=== PATIENT | male | born 1950 | race Hispanic/Latino ===

== ENCOUNTER 2019-08-22 08:49 | Outpatient (CLI) | payer MEDICARE, SELFPAY ==
[2019-08-22 10:46] LABS: Alanine Aminotransferase 37 U/L (16-63); Cholesterol 138 mg/dL (0-200); HDL Direct 42 mg/dL (40-60); LDL Cholesterol Calculated 76 mg/dL (<130); Triglycerides 100 mg/dL (0-150)
== END 2019-08-22 08:50 | disposition home or self-care (01) ==
DX: E78.5 Hyperlipidemia, unspecified (principal); Z79.899 Other long term (current) drug therapy
CPT/HCPCS: 36415; 80061; 84460

== ENCOUNTER 2020-10-20 19:37 | Emergency (ER) | payer MEDICARE, SELFPAY ==
--- NOTE | ~2020-10-20 | XR_ITS ---
XR finger 4th LT min 2V 10/20/2020 20:43 Indication: Left fourth finger pain Procedure: 4 views left fourth finger Comparison: No prior studies for comparison. Findings: There is a nondisplaced tuft fracture fourth distal phalanx with overlying soft tissue swel ling. No other fractures. No foreign bodies. Impression: 1: Nondisplaced tuft fracture left fourth distal phalanx. Reviewed, dictated and finalized at location A. Impression: 1: Nondisplaced tuft fracture left fourth distal phalanx.
[2020-10-20 19:42] VITALS: BP 124/56; PULSE 59; RESP 14; TEMP 36.6; O2SAT 96
--- NOTE | 2020-10-20 19:57 | ED.WOUNDLAC ---
HPI - Wound/Laceration General Chief Complaint: Wound/Laceration Stated Complaint: cut finger on left hand Time Seen by Provider: 10/20/20 19:57 Source: patient Mode of arrival: ambulatory Limitations: no limitations History of Present Illness HPI narrative: 70-year-old man comes in today complaining of pain, swelling and laceration on his left ring finger tip that started about noon today. Patient states he was lifting a generator and it smashed his finger. He denies any numbness in his normal range of motion. He does not recall his last tetanus shot. Onset (ago): hour(s) (8) Extremity Location: Left: hand ( Ring finger) Place: outdoors Patient tetanus UTD: No Context: accidental Associated symptoms: pain Related Data Home Medications Medication Instructions Recorded Confirmed aspirin [Adult Aspirin] 81 mg PO DAILY 10/20/20 10/20/20 atorvastatin 80 mg PO DAILY 10/20/20 10/20/20 Allergies Allergy/AdvReac Type Severity Reaction Status Date / Time Penicillins Allergy Hives Verified 10/20/20 20:07 Review of Systems Review of Systems: All systems reviewed & are unremarkable except as noted in HPI and below Constitutional: Constitutional: Denies chills and Denies fever(s) Gastrointestinal: Gastrointestinal: Denies nausea and Denies vomiting Musculoskeletal: Musculoskeletal: Denies arthralgias and Denies joint swelling Integumentary/Breasts: Skin/Breast: Denies pruritus, Denies erythema and Denies rash Neurologic: Denies dizziness and Denies syncope Hematologic/Lymphatic: Hematologic/Lymphatic: Denies easy bleeding and Denies easy bruising Allergic/Immunologic: Allergic/Immunologic: Denies lip swelling and Denies throat swelling PMFSH Past Medical History Medical History (Updated 10/20/20 @ 20:55 by Silas Muniz MD) Coronary artery disease Dyslipidemia Surgical History Surgical History H/O Achilles tendon repair H/O Spinal surgery x2 S/P CABG (coronary artery bypass graft) Family History Family History (Updated 02/22/14 @ 07:13 by DOCTOR UNKNOWN) Mother Carcinoma of colon Social History Social History Smoking status: Never smoker Alcohol intake: never Exam Const: General: healthy appearing, no acute distress and alert Orientation/consciousness: patient oriented x3 Limitations: no limitations Eyes: Conjunctivae: conjunctivae normal Pupils: Equal, round and reactive pupils present EOM: EOMs intact bilaterally Skin: General skin exam: normal color, no jaundice and no pallor Rashes: no rashes Other: 1 cm irregular laceration on the radial aspect of the left ring finger. Subungual hematoma is present. Neuro: General: patient oriented x3, moves all extremities, no focal motor deficits and CN's II-XI intact bilaterally Speech: normal speech Gait exam (Neuro): Normal gait present Extrem: General: normal to inspection and no clubbing, cyanosis or edema Psych: Appearance: grossly normal and well kempt Mental Status: mental status grossly normal Affect: normal affect Attitude: cooperative Course Vital Signs Vital signs: Vital Signs Temperature 36.6 C 10/20/20 19:42 Pulse Rate 59 L 10/20/20 19:42 Respiratory Rate 14 10/20/20 19:42 Blood Pressure 124/56 L 10/20/20 19:42 Pulse Oximetry 96 10/20/20 19:42 Temperature 36.6 C 10/20/20 19:42 Pulse Rate 59 L 10/20/20 19:42 Respiratory Rate 14 10/20/20 19:42 Blood Pressure 124/56 L 10/20/20 19:42 Pulse Oximetry 96 10/20/20 19:42 Procedures Laceration Laceration 1: Date: 10/20/20 Time: 20:13 Site: hand Side (If applicable): left Size (cm): 1 Description: irregular Depth: simple, single layer Local Anesthetic: lidocaine 1% Amount of anesthesia used (mL): 1.5 ====== Skin Level ====== Skin layer closed wit
[2020-10-20] MEDS: TETANUS,DIPHTHERIA,AC PERTUSSIS ADULT 0.5 ML (ADACEL) IM (20:04)
[2020-10-20] MEDS: LIDOCAINE HCL 1% LOCAL INJ 20 ML VIAL (20:05)
--- NOTE | 2020-10-20 20:54 | PC.NURSE ---
3 sutures placed to left 4th finger by erp
[2020-10-20 21:09] VITALS: PULSE 60; RESP 15; O2SAT 100
== END 2020-10-20 21:09 | disposition home or self-care (01) ==
PROVIDERS: Emergency Provider Emergency Medicine; PCP Family Medicine
DX: S62.605A Fracture of unspecified phalanx of left ring finger, initial encounter for closed fracture (principal); X58.XXXA Exposure to other specified factors, initial encounter
CPT/HCPCS: 12001; 73140; 90471; 90715; 99283

== ENCOUNTER 2020-10-21 07:44 | Outpatient (CLI) | payer MEDICARE, SELFPAY ==
[2020-10-21 08:35] LABS: Cholesterol 162 mg/dL (0-200); HDL Direct 42 mg/dL (40-60); LDL Cholesterol Calculated 101 mg/dL (<130); Triglycerides 96 mg/dL (0-150)
== END 2020-10-21 07:45 | disposition home or self-care (01) ==
LOC: CHSLAB 07:48
PROVIDERS: PCP Nurse Practitioner; Visit Provider Internal Medicine Cardiovascular Disease
DX: I25.10 Atherosclerotic heart disease of native coronary artery without angina pectoris (principal); E78.2 Mixed hyperlipidemia; Z95.1 Presence of aortocoronary bypass graft
CPT/HCPCS: 36415; 80061

== ENCOUNTER 2021-09-03 12:26 | Outpatient (CLI) | payer MEDICARE, SELFPAY | END 2021-09-03 12:27 | disposition home or self-care (01) | LOC: CHSAUDIO 12:30 | PROVIDERS: PCP Family Medicine; Visit Provider Otolaryngology | DX: H91.90 Unspecified hearing loss, unspecified ear (principal) | CPT/HCPCS: 92557; 92567 ==

== ENCOUNTER 2022-04-04 08:15 | Outpatient (CLI) | payer MEDICARE, SELFPAY ==
--- NOTE | ~2022-04-04 | MR_ITS ---
EXAMINATION: MR knee RT wo con DATE: 04/04/2022 09:18 INDICATION: Primary osteoarthritis TECHNIQUE: Magnetic resonance imaging (MRI) of the right knee was performed without intravenous contr ast. Sequences included axial PD-weighted FS FSE, coronal PD-weighted FSE and PD-weighted FS FSE, sag ittal PD-weighted FSE, and sagittal T2-weighted FS FSE. COMPARISON: 10/15/2016. FINDINGS: Medial compartment: Minimal apical blunting of the meniscal body. Moderate diffuse thinning of cartilage. Mild osteophyto sis. Lateral compartment: Considerable degenerative signal change and fraying of the posterior horn and body, lateral meniscus, with a complex predominantly vertically oriented tear at the junction of the posterior horn and body , and lateral meniscal extrusion. Full-thickness cartilage loss. Subcortical edema and sclerosis. Mod erate osteophytosis. Patellofemoral compartment: Moderate diffuse thinning of cartilage. Full-thickness cartilage loss along the lateral facet. Mild o steophytosis. Intact retinacula. Ligaments and tendons: Diminutive appearing ACL. The PCL, LCL, and MCL are intact. Remaining flexor and extensor tendons are intact. Minimal abnormal fluid deep to the tendons of the pes anserine. Patellar tendon enthesopathy . Fluid: Moderate volume joint fluid. Osseous/other: No suspicious focal or diffuse marrow signal IMPRESSION: 1. Complex tear of the lateral meniscus at the junction of the posterior horn and body with lateral m eniscal extrusion. 2. Thin, diminutive appearing ACL, likely chronic tear, correlate for findings of anterior instabilit y. 3. Tricompartmental arthritic changes, severe in the lateral compartment. 4. Moderate joint effusion. 5. Pes anserine bursitis. 6. Tiny apical tear of the medial meniscal body. Reviewed, dictated and finalized at location K. IMPRESSION: 1. Complex tear of the lateral meniscus at the junction of the posterior horn a nd body with lateral meniscal extrusion. 2. Thin, diminutive appearing ACL, likely chronic tear, correlate for findings of anterior instability. 3. Tricompartmental arthritic changes, severe in the lateral compartment. 4. Moderate joint effusion. 5. Pes anserine bursitis. 6. Tiny apical tear of the medial meniscal body.
== END 2022-04-04 08:16 | disposition home or self-care (01) ==
PROVIDERS: PCP Family Medicine
DX: M17.11 Unilateral primary osteoarthritis, right knee (principal)
CPT/HCPCS: 73721

== ENCOUNTER 2022-05-08 10:04 | Outpatient (CLI) | payer MEDICARE, SELFPAY ==
[2022-05-08 11:13] LABS: Alanine Aminotransferase 41 U/L (16-63); Cholesterol 130 mg/dL (0-200); HDL Direct 45 mg/dL (40-60); LDL Cholesterol Calculated 74 mg/dL (<130); Prostate Specific Antigen 0.9 ng/mL (< OR = 4.0); Triglycerides 54 mg/dL (0-150)
== END 2022-05-08 10:05 | disposition home or self-care (01) ==
LOC: CHSLAB 10:09
PROVIDERS: PCP Family Medicine; Visit Provider Specialist
DX: E78.2 Mixed hyperlipidemia (principal); I25.10 Atherosclerotic heart disease of native coronary artery without angina pectoris; Z12.5 Encounter for screening for malignant neoplasm of prostate
CPT/HCPCS: 36415; 80061; 84153; 84460; G0103

== ENCOUNTER 2022-06-08 14:46 | Outpatient (RCR) | payer MEDICARE, SELFPAY ==
--- NOTE | 2022-06-08 12:36 | PTOPEVAL1 ---
Assessment and note entered by Eladio Bingham Evaluation Information Assessment Status Evaluation Diagnosis pre-op R TKA Onset 06/01/22 Subjective Information Pt. reports that he will be undergoing right TKA on 07/09/22. He reports that he has had progressive knee pain for years. He enjoys pickle ball and tennis and wants to return to playing them comfortably. He reports that he is very active but has recently been unable to be as active due to the pain. He reports that his goal is to develop and exercise program to improve knee mobility and strength. Reported Pain Level Pain Score 3: Self Report Assessment PT Clinical Summary Pt. enters the clinic for pre operative instruction regarding R TKA. He demonstrates independence with a HEP at this time. He is encouraged to initiate exercise immediately till surgical date and following surgery. He will be discharged from our care at this time. Plan of Care Treatment Frequency and D/C from PT to an independent HEP. Duration These treatments will address the objective and functional deficits as defined above. The patient will be advanced safely and appropriately in order for the patient to progress towards his/her prior level of function. Additional exercises will be introduced and as well as a comprehensive home exercise program upon discharge, if needed, ?to ensure carryover of functional gains achieved in the clinic. This treatment plan has been reviewed and agreement upon by the patient.
== END 2022-06-08 16:04 | disposition home or self-care (01) ==
LOC: CHSPT 14:46
PROVIDERS: PCP Family Medicine
DX: M25.561 Pain in right knee (principal); M17.11 Unilateral primary osteoarthritis, right knee
CPT/HCPCS: 97110; 97161; 97530

== ENCOUNTER 2022-07-14 11:20 | Outpatient (RCR) | payer MEDICARE, SELFPAY ==
--- NOTE | 2022-07-14 10:54 | PTOPEVAL1 ---
Assessment and note entered by Eladio Bingham Evaluation Information Assessment Status Evaluation Diagnosis s/p right TKA Onset 07/09/22 Subjective Information Pt. reports that he underwent right TKA on 07/09/22 . He reports that he has been using a recumbent bike but has not been doing his HEP. He reports that he is having intense pain. He reports that he has been putting a pillow under the knee at night. He states that he was active with tennis and pickle ball prior to surgery. He states that he notices a lot of swelling in the knee. He states that his goal is to improve the knee moblity and return to walking normal. Reported Pain Level Pain Score 7: Self Report Assessment PT Clinical Summary Pt. is a 72 year old male who enters the clinic post right partial TKA. He presents with notable edema, impaired gait, impaired l.e. strength, impaired knee mobility, and pain. Continued treatment is indicated in order to improve these areas to allow the pt. to achieve his goal of being able to walk normally without an AD. Plan of Care Interventions Electrical Stimulation,Gait Training,Hot Pack/Cold Pack,Manual Therapy,Neuro Re-education,Patient/ Caregiver Educati,Therapeutic Activities, Therapeutic Exercise Other Interventions vasopneumatic compression PT Services Indicated Yes Treatment Frequency and 2x/week x 10 visits Duration These treatments will address the objective and functional deficits as defined above. The patient will be advanced safely and appropriately in order for the patient to progress towards his/her prior level of function. Additional exercises will be introduced and as well as a comprehensive home exercise program upon discharge, if needed, ?to ensure carryover of functional gains achieved in the clinic. This treatment plan has been reviewed and agreement upon by the patient.
== END 2022-08-11 15:16 | disposition home or self-care (01) ==
LOC: CHSPT 11:20
PROVIDERS: PCP Family Medicine
DX: Z47.1 Aftercare following joint replacement surgery (principal); Z96.651 Presence of right artificial knee joint
CPT/HCPCS: 97016; 97110; 97161; 97530

== ENCOUNTER 2023-01-12 07:51 | Outpatient (RCR) | payer MEDICARE, SELFPAY ==
--- NOTE | 2023-01-12 07:55 | PTOPEVAL1 ---
Assessment and note entered by Eladio Bingham Evaluation Information Assessment Status Evaluation Diagnosis knee pain, right hamstring strain Onset 06/28/22 Subjective Information Pt. reports he underwent right partial knee replacement in Jun. He states that he was doing well, but has recently developed pain in the described area of the lateral HS. He states that he is having increasing trouble bending the knee. He states that he exercises on his total gym daily to try to improve his ROM. He states that the ache is constant and will radiate into the calf. He states that he has numbness on the outside of the right knee. He does notice most pain with trying to bend the right knee. He still attempts to play tennis and pickleball. He reports that his goal is to be able to decrease his knee pain to participate in normal recreational activities. Reported Pain Level Pain Score 4: Self Report Assessment PT Clinical Summary Pt. is a 72 year old male who enters the clinic with right knee pain. He presents with indcation of HS strain on the right. He currently presents with pain, limited knee mobility, impaired gait and functional decline. Continued skilled PT is indicated in order to improve these areas to allow the pt. improved comfort with all IADL's. Plan of Care Interventions Electrical Stimulation,Hot Pack/Cold Pack,Manual Therapy,Neuro Re-education,Patient/Caregiver Educati,Therapeutic Activities,Therapeutic Exercise PT Services Indicated Yes Treatment Frequency and 2x/week x 8 visits Duration These treatments will address the objective and functional deficits as defined above. The patient will be advanced safely and appropriately in order for the patient to progress towards his/her prior level of function. Additional exercises will be introduced and as well as a comprehensive home exercise program upon discharge, if needed, ?to ensure carryover of functional gains achieved in the clinic. This treatment plan has been reviewed and agreement upon by the patient.
--- NOTE | 2023-01-12 08:03 | OPREHPOC ---
Outpatient Therapy Plan of Care This is a Multidisciplinary Plan of Care that may contain components documented by all disciplines (PT, OT, and ST.) PT Problem 1 PT Problem #1 Knowledge Deficit PT Goal 1 Goal Pt. will be independent with a HEP addressing flexibility and mobility. Target Visit 2 PT Problem 2 PT Problem #2 Pain PT Goal 1 Goal Pt. will reduce pain to 1/10 with all IADL's and prolonged standing activities. Target Visit 8 PT Problem 3 PT Problem #3 Impaired Gait PT Goal 1 Goal Pt. will ambulate with equal right and left stance time over level surface. Target Visit 8
== END 2023-02-09 17:17 | disposition home or self-care (01) ==
LOC: CHSPT 07:51
DX: S76.311D Strain of muscle, fascia and tendon of the posterior muscle group at thigh level, right thigh, subsequent encounter (principal); Z96.651 Presence of right artificial knee joint
CPT/HCPCS: 97014; 97110; 97140; 97161; G0283

== ENCOUNTER 2023-05-21 08:20 | Outpatient (CLI) | payer MEDICARE, SELFPAY ==
[2023-05-21 08:41] LABS: Basophils Absolute Auto 0.03 K/mm3 (0.00-0.10); Basophils Percent Auto 0.6 % (0.0-1.0); Eosinophils Absolute Auto 0.22 K/mm3 (0.02-0.50); Eosinophils Percent Auto 4.2 % (1.0-6.0); Hemoglobin 14.5 g/dL (12.4-15.3); Immature Granulocyte Absolute 0.02 K/mm3 (0.00-0.00); Immature Granulocyte Percent A 0.4 % (0.0-0.0); Lymphocytes Absolute Auto 1.44 K/mm3 (1.10-4.50); Lymphocytes Percent Auto 27.4 % (18.0-42.0); Mean Corpuscular HGB Conc 33.7 g/dL (32.0-36.0); Mean Corpuscular Volume 91.9 fL (78.0-102.0); Mean Platelet Volume 10.4 fl (8.7-11.0); Monocytes Absolute Auto 0.45 K/mm3 (0.10-0.90); Monocytes Percent Auto 8.6 % (2.0-11.0); Neutrophils Absolute Auto 3.1 K/mm3 (1.7-7.2); Neutrophils Percent Auto 58.8 % (50.0-70.0); Platelet Count Result 188 K/mm3 (150-420); Red Blood Count 4.68 M/mm3 (4.70-6.10); Red Cell Distribution Width 12.9 % (11.6-14.4); White Blood Count 5.3 K/mm3 (4.8-10.8)
[2023-05-21 08:54] LABS: Prothrombin Time 10.8 Seconds (9.50-12.10)
[2023-05-21 09:03] LABS: Alanine Aminotransferase 36 U/L (16-63); Albumin Level 3.7 g/dL (3.4-5.0); Alkaline Phosphatase 82 U/L (46-116); Anion Gap 6 mmol/L (8-16); Aspartate Amino Transferase 22 U/L (15-37); Blood Urea Nitrogen 20 mg/dL (7-18); Calcium 8.9 mg/dL (8.5-10.1); Carbon Dioxide 31 mmol/L (21-32); Chloride 104 mmol/L (98-108); Estimated Glomerular Filt Rate > 60; Glucose 98 mg/dL (70-99); Magnesium 2.1 mg/dL (1.8-2.4); Osmolality Calculated 294 mOsm/kg (285-295); Potassium 4.3 mmol/L (3.5-5.1); Sodium 141 mmol/L (136-145); Total Protein 7.1 g/dL (6.4-8.2)
== END 2023-05-21 08:21 | disposition home or self-care (01) ==
PROVIDERS: Visit Provider Specialist
DX: R07.9 Chest pain, unspecified (principal); Z95.1 Presence of aortocoronary bypass graft; I25.119 Atherosclerotic heart disease of native coronary artery with unspecified angina pectoris
CPT/HCPCS: 36415; 80048; 80053; 83735; 85025; 85610

== ENCOUNTER 2023-09-22 08:40 | Outpatient (CLI) | payer MEDICARE, SELFPAY ==
[2023-09-22 09:39] LABS: Alanine Aminotransferase 31 U/L (16-63); Alkaline Phosphatase 80 U/L (46-116); Anion Gap 8 mmol/L (4-12); Aspartate Amino Transferase 22 U/L (15-37); Bilirubin,Total 1.1 mg/dL (0.00-1.00); Blood Urea Nitrogen 20 mg/dL (7-18); Calcium 9.1 mg/dL (8.5-10.1); Carbon Dioxide 30 mmol/L (21-32); Chloride 104 mmol/L (98-108); Cholesterol 142 mg/dL (0-200); Estimated Glomerular Filt Rate > 60; Glucose 90 mg/dL (70-99); HDL Direct 53 mg/dL (40-60); LDL Cholesterol Calculated 69 mg/dL (<130); Osmolality Calculated 296 mOsm/kg (285-295); Potassium 4.6 mmol/L (3.5-5.1); Sodium 142 mmol/L (136-145); Total Protein 7.2 g/dL (6.4-8.2); Triglycerides 98 mg/dL (0-150)
== END 2023-09-22 08:41 | disposition home or self-care (01) ==
LOC: CHSLAB 08:44
PROVIDERS: PCP Nurse Practitioner; Visit Provider Nurse Practitioner
DX: E78.2 Mixed hyperlipidemia (principal); I25.10 Atherosclerotic heart disease of native coronary artery without angina pectoris; Z12.5 Encounter for screening for malignant neoplasm of prostate
CPT/HCPCS: 36415; 80053; 80061; 84153; G0103